=== PATIENT | female | born 2000 | race Hispanic/Latino ===

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

== ENCOUNTER 2023-07-23 18:21 | Emergency (ER) | payer OTHER, SELFPAY | END 2023-07-24 02:32 | disposition home or self-care (01) | LOC: ERS 18:21 | DX: K76.0 Fatty (change of) liver, not elsewhere classified (principal); R11.2 Nausea with vomiting, unspecified | CPT/HCPCS: 36415; 74177; 80053; 81001; 83690; 83735; 84703; 85025; 96360; 96361; Q9967 ==